=== PATIENT | male | born 1970 | race American Indian/Alaskan Native ===

== ENCOUNTER 2017-07-04 20:17 | Emergency (ER) | payer SELFPAY ==
[2017-07-04 20:38] VITALS: BP 129/83; PULSE 73; RESP 16; TEMP 98.2; O2SAT 99
--- NOTE | 2017-07-04 21:45 | ED PDOC ---
Arrival/HPI - General Chief Complaint: Eye Problem Time Seen by Provider: 07/04/17 21:38 Historian: Patient - History of Present Illness Narrative History of Present Illness (Text): 07/04/17 21:40 46yr old male presents today with right eye redness after sneezing yesterday. pt denies pain. no fever/chills. denies headache, dizziness or weakness. no cp or sob. no vomiting/diarrhea. pt states he woke up to day and the medial aspect of the eye was a little more red so he came in for evaluation. Past Medical History - Provider Review Nursing Documentation Reviewed: Yes - Travel History Have you recently traveled outside [place] w/in the past 3 mons?: No - Infectious Disease Hx of Infectious Diseases: None - Tetanus Immunization Tetanus Immunization: Unknown - Psychiatric Hx Substance Use: No - Surgical History Hx Orthopedic Surgery: Yes (LEFT FOOT) - Anesthesia Hx Anesthesia: No - Suicidal Assessment Feels Threatened In Home Enviroment: No Family/Social History - Physician Review Nursing Documentation Reviewed: Yes Family/Social History: Unknown Family HX Smoking Status: Never Smoked Hx Alcohol Use: No Hx Substance Use: No Allergies/Home Meds Allergies/Adverse Reactions: Allergies No Known Allergies Allergy (Verified 07/04/17 20:38) Home Medications: Home Meds Medication Instructions Recorded Confirmed No Known Home Med 07/04/17 07/04/17 Review of Systems - Review of Systems Constitutional: absent: Fatigue, Fevers Eyes: absent: Vision Changes, Photophobia, Eye Pain ENT: absent: Sore Throat, Sinus Congestion Respiratory: absent: SOB, Cough Cardiovascular: absent: Chest Pain, Palpitations Gastrointestinal: absent: Abdominal Pain, Nausea, Vomiting Genitourinary Male: absent: Dysuria Musculoskeletal: absent: Arthralgias Skin: absent: Rash, Pruritis Neurological: absent: Headache, Dizziness Psychiatric: absent: Anxiety, Depression Physical Exam Vital Signs Reviewed: Yes Vital Signs Temp Pulse Resp BP Pulse Ox 07/04/17 20:36 98.2 F 73 16 129/83 99 Temperature: Afebrile Blood Pressure: Normal Pulse: Regular Respiratory Rate: Normal Appearance: Positive for: Well-Appearing, Non-Toxic, Comfortable Pain Distress: None Mental Status: Positive for: Alert and Oriented X 3 - Systems Exam Head: Present: Atraumatic. No: Tenderness, Contusion Pupils: Present: PERRL Extroacular Muscles: Present: EOMI Conjunctiva: Present: Other (right eye; there is a subconjunctival hemorrhage along the medial aspect. no periorbital edema or erythema. ) Ears: Present: Normal Mouth: Present: Moist Mucous Membranes Pharnyx: Present: Normal Nose (External): Present: Atraumatic Nose (Internal): Present: Normal Inspection Neck: Present: Normal Range of Motion, Trachea Midline. No: Meningeal Signs Respiratory/Chest: Present: Clear to Auscultation, Good Air Exchange. No: Respiratory Distress, Accessory Muscle Use Cardiovascular: Present: Regular Rate and Rhythm, Normal S1, S2. No: Murmurs Skin: Present: Warm, Dry, Normal Color. No: Rashes Psychiatric: Present: Alert, Oriented x 3 Medical Decision Making ED Course and Treatment: 07/04/17 22:44 46yr old male with right subconjunctival hemorrhage after sneezing. visual acuity wnl i discussed subconjunctival hemorrhage with patient in depth; advised f/u with pmd and eye doctor. advised immediate return if symptoms worsen,persist or if new symptoms develop. impression; subconjuntival hemorrhage Follow up with the primary care physician within the next 2 days Follow up with the eye doctor return immediately if symptoms worsen,persist or if new symptoms develop. Disposition/Present on Arrival - Present on Arrival Any Indicators Present on Arrival: No History of DVT/PE: No History of Uncontrolled Diabetes: No Urinary Catheter: No History of Decub. Ulcer: No History Surgical Site Infection Following: None - Disposition Have Diagnosis and Disposition been Completed?: Yes Diagnosis: Subconjunctival hemorrhage Disposition: HOME/ ROUTINE Disposition Time: 21:39 Patient Plan: Discharge Condition: GOOD Discharge Instructions (ExitCare): Subconjunctival Hemorrhage (ED) Additional Instructions: Follow up with the primary care physician within the next 2 days Follow up with the eye doctor return immediately if symptoms worsen,persist or if new symptoms develop. Referrals: Duke Smith MD [Staff Provider] - Follow up with primary Zach Segura MD [Staff Provider] - [place] up with primary [facility] [place] [facility] [place] - Follow up with primary
== END 2017-07-04 21:47 | disposition home or self-care (01) ==
LOC: ED 20:17
DX: H11.31 Conjunctival hemorrhage, right eye (principal)

== ENCOUNTER 2017-08-05 09:16 | Emergency (ER) | payer SELFPAY ==
[2017-08-05 09:50] VITALS: TEMP 98.4; O2SAT 98
[2017-08-05] MEDS ORDERED: Promethazine/Cod 6.25mg-10mg/5ml Syr UD PO STA (10:02)
[2017-08-05] MEDS ORDERED: Albuterol-Ipratrop 3 mg / 0.5 (3 ml) UD IH STA (10:02)
--- NOTE | 2017-08-05 10:08 | ED PDOC ---
Arrival/HPI - General Chief Complaint: Cough, Cold, Congestion Time Seen by Provider: 08/05/17 09:48 Historian: Patient - History of Present Illness Narrative History of Present Illness (Text): 08/05/17 10:05 46 yo male w/o significant PMHx come in for evaluation of " cold sx for 1 month ". Pt reports, started as nasal congestion, dry cough, was taking OTC medication with worsening of dry cough. Pt reports, for past few days, cough worsen, "mostly at night time and hot places". Otherwise, pt denies fever, chills, headache, dizziness, throat swelling or tightness, CP, SOB, palpitation , diaphoresis, abd. pain, N/V/D, back pain, denies previous hx of seasonal or other allergy. Ambulate to ED for evaluation, not in any apparent distress. Past Medical History - Provider Review Nursing Documentation Reviewed: Yes - Travel History Have you recently traveled outside [place] w/in the past 3 mons?: No - Infectious Disease Hx of Infectious Diseases: None - Tetanus Immunization Tetanus Immunization: Unknown - Past Medical History Past Medical History: No Previous - Psychiatric Hx Substance Use: No - Surgical History Hx Orthopedic Surgery: Yes (LEFT FOOT) - Anesthesia Hx Anesthesia: No - Suicidal Assessment Feels Threatened In Home Enviroment: No Family/Social History - Physician Review Nursing Documentation Reviewed: Yes Family/Social History: No Known Family HX Smoking Status: Never Smoked Hx Alcohol Use: No Hx Substance Use: No Allergies/Home Meds Allergies/Adverse Reactions: Allergies No Known Allergies Allergy (Verified 08/05/17 09:47) Review of Systems - Review of Systems Constitutional: Normal Eyes: Normal ENT: Sinus Congestion Respiratory: Cough. absent: Sputum Cardiovascular: Normal. absent: Chest Pain, Palpitations, Edema Gastrointestinal: Normal. absent: Abdominal Pain, Nausea, Vomiting Genitourinary Male: Normal Musculoskeletal: Normal Skin: Normal. absent: Rash Neurological: Normal. absent: Headache, Dizziness, Focal Weakness Endocrine: Normal Hemo/Lymphatic: Normal Psychiatric: Normal Physical Exam Vital Signs Temp Pulse Resp BP Pulse Ox 08/05/17 09:42 98.4 F 71 16 129/86 98 Temperature: Afebrile Blood Pressure: Normal Pulse: Regular Respiratory Rate: Normal Appearance: Positive for: Well-Appearing, Non-Toxic, Comfortable Pain Distress: None Mental Status: Positive for: Alert and Oriented X 3 - Systems Exam Head: Present: Normocephalic Conjunctiva: Present: Normal Ears: Present: NORMAL TM Mouth: Present: Moist Mucous Membranes. No: Drooling Pharnyx: Present: ERYTHEMA (mild B/L). No: EXUDATE, TONSILS ENLARGED Nose (Internal): Present: Engorged. No: Septal Hematoma Neck: Present: Trachea Midline. No: JVD, Lymphadenopathy, Bruit Respiratory/Chest: Present: Good Air Exchange, Wheezes (scattered Right base). No: Respiratory Distress, Accessory Muscle Use, Decreased Breath Sounds, Rales, Retracting Cardiovascular: Present: Regular Rate and Rhythm, Normal S1, S2. No: Murmurs Abdomen: Present: Normal Bowel Sounds. No: Tenderness, Distention, Peritoneal Signs, Rebound, Guarding Back: No: CVA Tenderness Upper Extremity: Present: Normal ROM. No: Deformity Lower Extremity: Present: Normal ROM. No: Edema, CALF TENDERNESS, Swelling, Deformity Neurological: Present: GCS=15, Speech Normal Skin: Present: Warm, Dry, Normal Color. No: Rashes Psychiatric: Present: Alert, Oriented x 3, Normal Insight, Normal Concentration Medical Decision Making ED Course and Treatment: 08/05/17 10:09 On re-evaluation, pt is afebrile, hemodynamicaly stable. Non-toxic. PulseOx 99% RA ENT: no acute findings Neck: Supple, (-) JVD, (-) carotid bruits B/L Lungs: CTA B/L, BS equal B/L. CVS: (+)S1S2, reg. Abd: benign CXR review and appears normal. Pt has clinical findings c/w bronchitis r/o reactive airway ds. Pt advised ref. to F/u with PMD, Pulm in 2-3 days for re-evaluation. return to ED if any worsening or new changes. - RAD Interpretation Radiology Orders: 08/05/17 10:02 CHEST TWO VIEWS (PA/LAT) [RAD] Stat (-) acute findings - Medication Orders Current Medication Orders: Discontinued Medications Albuterol/Ipratropium (Duoneb 3 Mg/0.5 Mg (3 Ml) Ud) 3 ml IH STAT STA Stop: 08/05/17 10:03 Last Admin: 08/05/17 10:11 Dose: 3 ml Prednisone (Prednisone Tab) 60 mg PO STAT STA Stop: 08/05/17 10:03 Last Admin: 08/05/17 10:11 Dose: 60 mg Promethazine HCl/Codeine (Phenergan/Codeine Oral Syrup) 5 ml PO STAT STA Stop: 08/05/17 10:03 Last Admin: 08/05/17 10:11 Dose: 5 ml Disposition/Present on Arrival - Present on Arrival Any Indicators Present on Arrival: No History of DVT/PE: No History of Uncontrolled Diabetes: No Urinary Catheter: No History of Decub. Ulcer: No History Surgical Site Infection Following: None - Disposition Have Diagnosis and Disposition been Completed?: Yes Diagnosis: Asthmatic bronchitis Disposition: HOME/ ROUTINE Disposition Time: 11:00 Patient Plan: Discharge Patient Problems: Current Active Problems Problem Status Onset Asthmatic bronchitis Acute Condition: STABLE Discharge Instructions (ExitCare): Reactive Airways Disease (ED) Additional Instructions: ENCOURAGE FLUIDS TAKE MEDICATION PRESCRIBED AIR HUMIDIFIER IN ROOM FOLLOW UP WITH PMD, PULMONOLOGY IN 2-3 DAYS FOR RE-EVALUATION. RETURN TO ED IF ANY WORSENING OR NEW CHANGES. Prescriptions: Albuterol HFA [Ventolin HFA 90 mcg/actuation (8 g)] 1 puff IH Q6 #1 inhaler Prednisone [Deltasone] 40 mg PO DAILY #6 tablet Promethazine/Codeine [Phenergan/Codeine Oral Syrup] 10 ml PO Q8 #80 ml Referrals: PCPANTONIO [Primary Care Provider] - Follow up with primary [facility] at [facility] [place]] - Follow up with primary Forms: [employer] (Estonian)
--- NOTE | 2017-08-05 11:00 | RAD ---
HISTORY: Cough COMPARISON: No prior. TECHNIQUE: Chest PA and lateral FINDINGS: LUNGS: No evidence of focal infiltrate or consolidation in the lungs. PLEURA: No significant pleural effusion identified. No pneumothorax apparent. CARDIOVASCULAR: Normal. OSSEOUS STRUCTURES: No significant abnormalities. VISUALIZED UPPER ABDOMEN: Normal. OTHER FINDINGS: None. IMPRESSION: No active disease.
[2017-08-05 11:37] VITALS: BP 128/76; PULSE 78; RESP 18
== END 2017-08-05 11:36 | disposition home or self-care (01) ==
LOC: ED 09:16
DX: J45.909 Unspecified asthma, uncomplicated (principal)

== ENCOUNTER 2018-04-14 19:07 | Emergency (ER) | payer BC ==
[2018-04-14 20:17] VITALS: BP 119/79; PULSE 83; RESP 16; TEMP 98.8; O2SAT 98
[2018-04-14] MEDS ORDERED: Albuterol-Ipratrop 3 mg / 0.5 (3 ml) UD IH STA (20:17)
--- NOTE | 2018-04-14 20:33 | ED PDOC ---
Arrival/HPI - General Chief Complaint: Cough, Cold, Congestion Time Seen by Provider: 04/14/18 19:16 Historian: Patient - History of Present Illness Narrative History of Present Illness (Text): 04/14/18 20:30 A 47 year old male with no significant past medical history, presents to the emergency department with a complaint of several day duration dry cough. The patient denies fevers, chills, headache, dizziness, sore throat, chest pain, shortness of breath, dyspnea on exertion, abdominal pain, nausea, vomiting, diarrhea, neck/back pain, urinary/bowel changes or any other complaint. PMD: None Time/Duration: Other (Few Days) Symptom Onset: Sudden Symptom Course: Unchanged Activities at Onset: Rest, Light Context: Home Past Medical History - Provider Review Nursing Documentation Reviewed: Yes - Infectious Disease Hx of Infectious Diseases: None - Tetanus Immunization Tetanus Immunization: Unknown - Past Medical History Past Medical History: No Previous - Cardiac Hx Cardiac Disorders: No - Pulmonary Hx Respiratory Disorders: Yes Hx Asthma: Yes - Neurological Hx Neurological Disorder: No - HEENT Hx HEENT Disorder: No - Renal Hx Renal Disorder: No - Endocrine/Metabolic Hx Endocrine Disorders: No - Hematological/Oncological Hx Blood Disorders: No - Integumentary Hx Dermatological Disorder: No - Musculoskeletal/Rheumatological Hx Musculoskeletal Disorders: No - Gastrointestinal Hx Gastrointestinal Disorders: No - Genitourinary/Gynecological Hx Genitourinary Disorders: No - Psychiatric Hx Psychophysiologic Disorder: No Hx Substance Use: No - Surgical History Hx Orthopedic Surgery: Yes (LEFT FOOT) - Anesthesia Hx Anesthesia: No - Suicidal Assessment Feels Threatened In Home Enviroment: No Family/Social History - Physician Review Nursing Documentation Reviewed: Yes Family/Social History: No Known Family HX Smoking Status: Never Smoked Hx Alcohol Use: No Hx Substance Use: No Allergies/Home Meds Allergies/Adverse Reactions: Allergies No Known Allergies Allergy (Verified 04/14/18 19:36) Review of Systems - Physician Review All systems were reviewed & negative as marked: Yes - Review of Systems Constitutional: absent: Fevers, Night Sweats ENT: absent: Sore Throat Respiratory: Cough (Dry cough). absent: SOB Cardiovascular: absent: Chest Pain, JOYA Gastrointestinal: absent: Abdominal Pain, Stool Changes, Diarrhea, Nausea, Vomiting Genitourinary Male: absent: Urinary Output Changes Musculoskeletal: absent: Back Pain, Neck Pain Neurological: absent: Headache, Dizziness Physical Exam Vital Signs Reviewed: Yes Vital Signs Temp Pulse Resp BP Pulse Ox 04/14/18 19:36 98.8 F 83 16 119/79 98 Temperature: Afebrile Blood Pressure: Normal Pulse: Regular Respiratory Rate: Normal Appearance: Positive for: Well-Appearing, Non-Toxic, Comfortable Pain Distress: None Mental Status: Positive for: Alert and Oriented X 3 - Systems Exam Head: Present: Atraumatic, Normocephalic Pupils: Present: PERRL Extroacular Muscles: Present: EOMI Conjunctiva: Present: Normal Mouth: Present: Moist Mucous Membranes Neck: Present: Normal Range of Motion Respiratory/Chest: Present: Clear to Auscultation, Good Air Exchange. No: Respiratory Distress, Accessory Muscle Use Cardiovascular: Present: Regular Rate and Rhythm, Normal S1, S2. No: Murmurs Abdomen: No: Tenderness, Distention, Peritoneal Signs Back: Present: Normal Inspection Upper Extremity: Present: Normal Inspection. No: Cyanosis, Edema Lower Extremity: Present: Normal Inspection. No: Edema Neurological: Present: GCS=15, CN II-XII Intact, Speech Normal Skin: Present: Warm, Dry, Normal Color. No: Rashes Psychiatric: Present: Alert, Oriented x 3, Normal Insight, Normal Concentration Medical Decision Making ED Course and Treatment: 04/14/18 20:32 Impression: A 47 year old female presents to the emergency department with complaint of several day duration dry cough. Plan: -- Duoneb and Zithromax -- Reassess and disposition Progress Notes: 04/14/18 21:31 On re-evaluation, patient feels better and is in no acute distress. I have discussed the results and plan with the patient, who expresses understanding. Patient in agreement with plan to be discharged home. Patient is stable for discharge. Patient was instructed to follow up with physician or return if symptoms worsen or new concerning symptoms arise. - Medication Orders Current Medication Orders: Discontinued Medications Albuterol/Ipratropium (Duoneb 3 Mg/0.5 Mg (3 Ml) Ud) 3 ml IH ONCE STA Stop: 04/14/18 20:18 Last Admin: 04/14/18 20:25 Dose: 3 ml Azithromycin (Zithromax) 500 mg PO ONCE STA PRN Reason: Protocol Stop: 04/14/18 20:18 Last Admin: 04/14/18 20:59 Dose: 500 mg - Scribe Statement The provider has reviewed the documentation as recorded by the Sydnee Thomas Provider Sydnee Attestation: All medical record entries made by the Sydnee were at my direction and personally dictated by me. I have reviewed the chart and agree that the record accurately reflects my personal performance of the history, physical exam, medical decision making, and the department course for this patient. I have also personally directed, reviewed, and agree with the discharge instructions and disposition. Disposition/Present on Arrival - Present on Arrival Any Indicators Present on Arrival: No History of DVT/PE: No History of Uncontrolled Diabetes: No Urinary Catheter: No History of Decub. Ulcer: No History Surgical Site Infection Following: None - Disposition Have Diagnosis and Disposition been Completed?: Yes Diagnosis: Bronchitis Disposition: HOME/ ROUTINE Disposition Time: 21:27 Patient Plan: Discharge Patient Problems: Current Active Problems Problem Status Onset Bronchitis Acute Condition: GOOD Discharge Instructions (ExitCare): Acute Bronchitis, Adult (DC) Additional Instructions: Drink plenty of liquids/take meds as prescribed/follow up with your doctor this week Prescriptions: Benzonatate [Tessalon Perles] 100 mg PO TID PRN #21 sgl PRN Reason: Cough Azithromycin [Zithromax] 250 mg PO DAILY #6 tab Forms: [employer] (Latvian)
== END 2018-04-14 21:30 | disposition home or self-care (01) ==
LOC: ED 19:07
DX: J40 Bronchitis, not specified as acute or chronic (principal)